=== PATIENT | female | born 1940 | race Caucasian/White ===

== ENCOUNTER 2019-06-26 09:49 | Day surgery (SDC) | payer MEDICARE, MEDICAID ==
[2019-06-26] VITALS (10 sets, daily range): BP systolic 123–149; BP diastolic 46–76
[~2019-06-26] VITALS: Ht 163.8 cm; Wt 79.7 kg
[2019-06-26] MEDS ORDERED: diphenhydrAMINE 25mg capsule PO PRN (10:30)
[2019-06-26] MEDS ORDERED: normal saline 1,000 ML IV SCH (10:30)
[2019-06-26] MEDS ORDERED: LORazepam 0.5 MG tablet PO PRN (10:30)
[2019-06-26] MEDS ORDERED: fentaNYL/PF 50MCG/1 ML 2ML syringe ONE (11:38)
[2019-06-26] MEDS ORDERED: midazolam 2 mg/2 ml injection ONE (11:38)
[2019-06-26] MEDS ORDERED: LIDOcaine 1% (10mg/ml)w/preservative injection 20ml MDV ONE (11:38)
[2019-06-26] MEDS ORDERED: iohexol 350 MG/ML 50ML vial IV ONE (11:39)
[2019-06-26] MEDS ORDERED: iohexol 350MG/ML 100ml bottle IV ONE (11:39)
[2019-06-26] MEDS ORDERED: MELO-100 PO (11:41)
[2019-06-26] MEDS ORDERED: LOSA25TA96 PO (11:41)
[2019-06-26 12:03] LABS: EOSINOPHILS # (AUTO) 0.4 X10'3 (0-0.9); HEMATOCRIT 38.4 % (35.0-45.0); HEMOGLOBIN 13.2 g/dl (12.0-16.0); NEUTROPHILS # (AUTO) 6.6 X10'3 (1.8-7.7)
[2019-06-26 12:04] LABS: BASOPHILS # (AUTO) 0.1 X10'3 (0-0.2); BASOPHILS % (AUTO) 1.3 % (0-1); EOSINOPHILS % (AUTO) 3.4 % (0-6); LYMPHOCYTES # (AUTO) 2.8 X10'3 (1.1-4.8); LYMPHOCYTES % (AUTO) 25.6 % (21-51); MEAN CORPUSCULAR HEMOGLOBIN 34.1 PG (27.0-31.0); MEAN CORPUSCULAR HGB CONC 34.5 g/dL (33.0-36.5); MEAN CORPUSCULAR VOLUME 98.7 FL (78-98); MEAN PLATELET VOLUME 9.3 FL (7.4-10.4); MONOCYTES % (AUTO) 9.5 % (2-12); NEUTROPHILS % (AUTO) 60.2 % (42-75); PLATELET COUNT 237 X10'3 (140-440); RED BLOOD COUNT 3.89 X10'6 (4.20-5.60); RED CELL DISTRIBUTION WIDTH 16.7 % (11.5-14.5)
[2019-06-26 12:41] LABS: ALBUMIN 3.4 G/DL (3.4-5.0); ANION GAP 10 (8-16); BLOOD UREA NITROGEN 15 MG/DL (7-18); BUN/CREATININE RATIO 26.8 (6.6-38.0); CALCIUM 8.9 MG/DL (8.5-10.1); CHLORIDE 107 MMOL/L (99-107); CREATININE 0.56 MG/DL (0.40-0.90); GLUCOSE 92 MG/DL (70-104); POTASSIUM 4.4 MMOL/L (3.5-5.1); SODIUM 143 MMOL/L (135-145); eGFR > 90 ML/MIN
[2019-06-26 12:45] LABS: PARTIAL THROMBOPLASTIN TIME 22 SECONDS (22-32)
[2019-06-26] MEDS ORDERED: acetaminophen 325mg tablet PO ONE (15:00)
== END 2019-06-26 16:57 | disposition home or self-care (01) ==
LOC: SSTAY O 09:49
PROVIDERS: ATTEND Internal Medicine Interventional Cardiology
DX: R94.39 Abnormal result of other cardiovascular function study (principal); I35.0 Nonrheumatic aortic (valve) stenosis; Z79.899 Other long term (current) drug therapy; Z88.6 Allergy status to analgesic agent; Z90.710 Acquired absence of both cervix and uterus; Z98.890 Other specified postprocedural states; Z82.49 Family history of ischemic heart disease and other diseases of the circulatory system; M19.90 Unspecified osteoarthritis, unspecified site; I44.7 Left bundle-branch block, unspecified; I27.20 Pulmonary hypertension, unspecified
CPT/HCPCS: 36415; 80048; 85025; 85610; 85730; 93005; 93454; 99152; C1769; J1644; J2001; J2250; J3010; J7030; Q9967; A4620; A6258

== ENCOUNTER 2019-08-03 12:14 | Emergency (ER) | payer MEDICARE, MEDICAID ==
[~2019-08-03] VITALS: Ht 163.8 cm; Wt 78.2 kg
[~2019-08-03 12:14] MED LIST: LOSA25TA96 PO; MELO-100 PO
[2019-08-03 12:59] LABS: BASOPHILS # (AUTO) 0.2 X10'3 (0-0.2); BASOPHILS % (AUTO) 1.6 % (0-1); EOSINOPHILS # (AUTO) 0.3 X10'3 (0-0.9); EOSINOPHILS % (AUTO) 2.7 % (0-6); HEMATOCRIT 30.7 % (35.0-45.0); HEMOGLOBIN 10.4 g/dl (12.0-16.0); LYMPHOCYTES # (AUTO) 1.4 X10'3 (1.1-4.8); MEAN CORPUSCULAR HEMOGLOBIN 34.3 PG (27.0-31.0); MEAN CORPUSCULAR HGB CONC 33.9 g/dL (33.0-36.5); MEAN CORPUSCULAR VOLUME 101.3 FL (78-98); MEAN PLATELET VOLUME 8.8 FL (7.4-10.4); MONOCYTES # (AUTO) 1.3 X10'3 (0-0.9); MONOCYTES % (AUTO) 11.4 % (2-12); NEUTROPHILS # (AUTO) 7.9 X10'3 (1.8-7.7); NEUTROPHILS % (AUTO) 71.3 % (42-75); PLATELET COUNT 222 X10'3 (140-440); RED BLOOD COUNT 3.03 X10'6 (4.20-5.60); RED CELL DISTRIBUTION WIDTH 17.1 % (11.5-14.5); WHITE BLOOD COUNT 11.1 X10'3 (4.5-11.0)
[2019-08-03 13:12] LABS: ALANINE AMINOTRANSFERASE 13 U/L (12-78); ALBUMIN 2.8 G/DL (3.4-5.0); ALBUMIN/GLOBULIN RATIO 0.8 (1.1-1.5); ALKALINE PHOSPHATASE 54 IU/L (46-116); ANION GAP 5 (8-16); ASPARTATE AMINO TRANSFERASE 21 U/L (10-37); BILIRUBIN,TOTAL 0.7 MG/DL (0.1-1.0); BLOOD UREA NITROGEN 12 MG/DL (7-18); BUN/CREATININE RATIO 21.1 (6.6-38.0); CALCIUM 8.7 MG/DL (8.5-10.1); CHLORIDE 106 MMOL/L (99-107); CREATININE 0.57 MG/DL (0.40-0.90); GLUCOSE 119 MG/DL (70-104); POTASSIUM 3.9 MMOL/L (3.5-5.1); SODIUM 140 MMOL/L (135-145); TOTAL CARBON DIOXIDE 29.4 MMOL/L (24-32); TOTAL PROTEIN 6.5 G/DL (6.4-8.2); eGFR > 90 ML/MIN
[2019-08-03 13:19] LABS: MAGNESIUM 2.2 MG/DL (1.5-2.4)
--- NOTE | 2019-08-03 13:45 | NUR ---
pt sleeping in no distress.
--- NOTE | 2019-08-03 14:06 | NUR ---
pt has been up to bedside commode on own and doing well.
[2019-08-03] MEDS ORDERED: albuterol 2.5 MG/3 ML nebule NEB ONE (14:20)
--- NOTE | 2019-08-03 16:22 | NUR ---
PT'S SON CALLED TO CHECK ON PT. INFORMED WE ARE WAITING ON ONE MORE TROPONIN RESULT AND IF IT IS NEGATIVE THEN WE WILL BE SENDING HER HOME. HE SAID HE IS THE ONE WHO WILL PICK HER UP AND HE LIVES ABOUT 50MILES AWAY. PT AWARE OF THIS PLAN AND STATES SHE IS GOOD WITH IT.
--- NOTE | 2019-08-03 16:41 | NUR ---
CALLED PT'S SON ZULEIMA AND HE IS GOING TO CALL A MAN CALLED [employer] TO SEE IF HE CAN COME AND PICK HER UP. STATES THE PT IS GOOD TO GO. PT REQUESTED [facility] TO PICK HER UP BECAUSE HE COULD COME MORE QUICKLY.
--- NOTE | 2019-08-03 17:42 | NUR ---
PT'S RIDE WILL BE HERE IN ABOUT 50MIN
[2019-08-03 19:27] VITALS: BP 134/66
== END 2019-08-03 19:28 | disposition home or self-care (01) ==
LOC: ER 12:15
DX: R07.89 Other chest pain (principal); I10 Essential (primary) hypertension; Z88.5 Allergy status to narcotic agent; Z79.899 Other long term (current) drug therapy
CPT/HCPCS: 36415; 71045; 80053; 83735; 83880; 84484; 85025; 93005; 94640; 94760; 99285